=== PATIENT | female | born 1980 | race Caucasian/White ===

== ENCOUNTER 2016-06-16 06:09 | Emergency (ER) | payer BC ==
[2016-06-16] MEDS ORDERED: 0.9 % SODIUM CHLORIDE 1000ML 1,000 ML IV ONE (06:28)
[2016-06-16] MEDS ORDERED: ONDANSETRON HCL IV 4 MG/2 ML VIAL IVP ONE (06:28)
--- NOTE | 2016-06-16 06:45 | Emergency Department Record ---
History of Present Illness - General Source: Patient Mode of Arrival: Ambulatory Limitations: No limitations - History of Present Illness Initial comments: 36 yo female presents with nausea, vomiting and diarrhea that started around 9pm last night. The onset was initially with a bloated feeling quickly followed by nausea and vomiting and then diarrhea. No fevers. No blood in either vomiting or diarrhea. No recent travel or antibiotics. She has been healthy in her usual state of health. Her only abdominal surgery was a C section. MD complaint: Diarrhea, Nausea, Vomiting Onset/Timin -: Hour(s) Description of Vomiting: Food contents, Watery Description of Diarrhea: Water Associated Abdominal Pain: Yes Severity scale (1-10): 2 Quality: Aching, Cramping Consistency: Constant Improves with: None Worsens with: Eating <AAKASH VAZQUEZ - Last Filed: 06/16/16 06:36> <Luis Frias - Last Filed: 06/16/16 07:52> - General Chief complaint: Nausea, Vomiting, Diarrhea Stated complaint: VOMITING/DIARRHEA Time Seen by Provider: 06/16/16 06:33 - Related Data Home Medications Medication Instructions Recorded Confirmed Last Taken Fexofenadine HCl [Lilibeth Allergy] 180 mg PO DAILY 06/16/16 06/16/16 06/15/16 Norethindrone-E.estradiol-Iron 1 tab PO DAILY 06/16/16 06/16/16 06/15/16 [Junel Fe 1.5 mg-30 Mcg Tablet] Previous Rx's Medication Instructions Recorded Ondansetron [Zofran Odt] 4 mg SL .Q4-6H PRN #12 tab.rapdis 06/16/16 Allergies Allergy/AdvReac Type Severity Reaction Status Date / Time Sulfa (Sulfonamide Allergy ANAPHYLAXIS Verified 06/16/16 06:16 Antibiotics) Travel Screening - Travel/Exposure Within Last 30 Days Have you traveled within the last 30 days?: No - Travel Symptoms Symptom Screening: None <AAKASH VAZQUEZ - Last Filed: 06/16/16 06:36> Review of Systems Constitutional: Denies: Chills, Fever, Malaise, Weakness Eyes: Denies: Eye discharge ENT: Denies: Congestion, Throat pain Respiratory: Denies: Cough, Dyspnea, Hemoptysis, Stridor Cardiovascular: Denies: Chest pain, Palpitations, Syncope Endocrine: Denies: Fatigue Gastrointestinal: Reports: Abdominal pain (bloated), Diarrhea, Nausea, Vomiting. Denies: Hematemesis, Hematochezia Genitourinary: Denies: Dysuria, Urgency Musculoskeletal: Denies: Arthralgia, Back pain, Myalgia, Neck pain Skin: Denies: Bruising, Change in color Neurological: Denies: Confusion Psychiatric: Denies: Anxiety Hematological/Lymphatic: Denies: Blood Clots, Easy bleeding, Easy bruising, Swollen glands <AAKASH VAZQUEZ - Last Filed: 06/16/16 06:36> Past Medical History - SOCIAL HISTORY Smoking Status: Never smoker - RESPIRATORY Hx Respiratory Disorders: Yes Comment:: seasonal allergies - CARDIOVASCULAR Hx Cardio Disorders: No - NEURO Hx Neuro Disorders: No - GI Hx GI Disorders: No - Hx Genitourinary Disorders: No - ENDOCRINE Hx Endocrine Disorders: No - MUSCULOSKELETAL Hx Musculoskeletal Disorders: No - PSYCH Hx Psych Problems: No - HEMATOLOGY/ONCOLOGY Hx Hematology/Oncology Disorders: No <AAKASH VAZQUEZ - Last Filed: 06/16/16 06:36> Family Medical History Any Significant Family History?: Yes Family Hx Comment (NOT TO BE USED IN PLACE OF ITEMS BELOW): mom w/hyperthyroid Hx Cancer: Mother, Grandparents <AAKASH VAZQUEZ - Last Filed: 06/16/16 06:36> Physical Exam - General General Appearance: Alert, Oriented x3, Cooperative, No acute distress Limitations: No limitations - Head Head exam: Normal inspection - Eye Eye exam: Normal appearance, PERRL. negative: Conjunctival injection, Periorbital swelling - ENT ENT exam: Normal exam, Mucous membranes moist Ear exam: Normal external inspection Nasal Exam: Normal inspection Mouth exam: Normal external inspection Teeth exam: Normal inspection Throat exam: Normal inspection - Neck Neck exam: Normal inspection, Full ROM. negative: Tenderness - Respiratory Respiratory exam: Normal lung sounds bilaterally. negative: Respiratory distress - Cardiovascular Cardiovascular Exam: Regular rate, Normal rhythm, Normal heart sounds - GI/Abdominal GI/Abdominal exam: Soft, Normal bowel sounds. negative: Distended, Guarding, Rigid, Tenderness - Rectal Rectal exam: Deferred - exam: Deferred - Extremities Extremities exam: Normal inspection, Full ROM, Normal capillary refill. negative: Tenderness - Back Back exam: Reports: Normal inspection, Full ROM. Denies: Muscle spasm, Rash noted, Tenderness - Neurological Neurological exam: Alert, Normal gait, Oriented X3, Reflexes normal - Psychiatric Psychiatric exam: Normal affect, Normal mood. negative: Agitated, Anxious - Skin Skin exam: Dry, Intact, Normal color, Warm <AAKASH VAZQUEZ - Last Filed: 06/16/16 06:36> Course Vital Signs 06/16/16 06:13 Temperature 97.7 F Pulse Rate [ 120 H Pulse Ox Probe] Respiratory 20 Rate Blood Pressure 127/77 [Left Arm] Pulse Ox 95 <AAKASH VAZQUEZ - Last Filed: 06/16/16 06:36> Vital Signs 06/16/16 06:13 Temperature 97.7 F Pulse Rate [ 120 H Pulse Ox Probe] Respiratory 20 Rate Blood Pressure 127/77 [Left Arm] Pulse Ox 95 - Reevaluation(s) Reevaluation #1: The patient is doing much better at this time. She denies any nausea, vomiting, or diarrhea now and has no abdominal pain or cramping. I did discuss her lab results with her and the need for F/U. She denies any dysuria or back or flank pain and she states she is not on her menses presently so I am not sure how to explain the mild hematuria. Since there are no signs of infection I did explain to her that the prudent thing to do is have the urine rechecked later this week with her PCP and the patient does agree to that plan. 06/16/16 07:48 <Luis Frias - Last Filed: 06/16/16 07:52> Medical Decision Making - Lab Data Result diagrams: 06/16/16 06:40 06/16/16 06:40 Lab Results 06/16/16 06/16/16 06/16/16 Range/Units 06:40 06:40 07:30 WBC 13.4 H (4.2-12.2) K/uL RBC 4.76 (3.80-5.40) M/uL Hgb 14.1 (11.6-16.0) gm/dl Hct 43.4 (35.0-47.0) % MCV 91.2 (81-97) fl MCH 29.6 (27-33) pg MCHC 32.5 (32-36) g/dl RDW 14.5 (11.5-14.5) % Plt Count 414 H (130-400) K/uL MPV 9.8 (7.4-10.4) fl Neutrophils % 98.0 H (47-80) % Lymphocytes % 1.0 L (16-45) % Monocytes % 1.0 (0-9) % Eosinophils % Not Reportable Basophils % Not Reportable Platelet Estimate Normal (NORMAL) RBC Morphology Normal Sodium 141 (136-145) mmol/L Potassium 4.5 (3.5-5.1) mmol/L Chloride 106 (98-107) mmol/L Carbon Dioxide 21.9 L (22-30) mmol/L Anion Gap 13.1 (7-16) BUN 17 (7-17) mg/dL Creatinine 0.8 (0.52-1.04) mg/dL Estimated GFR > 60 ml/min Random Glucose 134 H (70-110) mg/dL Calcium 9.0 (8.5-10.1) mg/dL Total Bilirubin 0.60 (0.2-1.3) mg/dL AST 27 (14-36) U/L ALT 25 (9-52) U/L Alkaline Phosphatase 82 (38-126) U/L Total Protein 8.0 (6.3-8.2) gm/dL Albumin 4.5 (3.5-5.0) gm/dL Globulin 3.5 (1.4-4.8) gm/dL Albumin/Globulin Ratio 1.3 (1.1-1.8) Lipase 17 L (23-300) U/L Urine Color Yellow Urine Appearance Clear Urine pH 6.0 (5.0-8.0) Ur Specific [place] >= 1.030 (1.002-1.030) Urine Protein Negative (NEGATIVE) Urine Glucose (UA) Negative (NEGATIVE) Urine Ketones 15 mg/dl H (NEGATIVE) Urine Blood Moderate (NEGATIVE) Urine Nitrite Negative (NEGATIVE) Urine Bilirubin Negative (NEGATIVE) Urine Urobilinogen 0.2 (0.20 - 1.00) E.U./dL Ur Leukocyte Esterase Negative (NEGATIVE) Urine RBC 36 - 50 (NONE SEEN) Urine WBC 0 - 2 (0-2/hpf) Ur Epithelial Cells 3 - 6 (FEW) Urine Bacteria None seen Urine HCG, Qual Negative (NEGATIVE) <Luis Frias - Last Filed: 06/16/16 07:52> Disposition <AAKASH VAZQUEZ - Last Filed: 06/16/16 06:36> Disposition: Discharge Time of Disposition: 07:52 <Luis Frias - Last Filed: 06/16/16 07:52> Clinical Impression: Vomiting and diarrhea, Gastroenteritis Disposition: Home, Self-Care Condition: (1) Good Instructions: Acute Nausea and Vomiting (ED) Additional Instructions: Please drink plenty of fluids and use the Zofran for nausea. Please eat a very bland diet and see your PCP later this week for recheck and to have your urine rechecked due to the mild hematuria. Return to the ER for any increased nausea, vomiting, or diarrhea or for any fever or bleeding. Prescriptions: Ondansetron [Zofran Odt] 4 mg SL .Q4-6H PRN #12 tab.rapdis PRN Reason: Nausea Forms: Patient Portal Access
[2016-06-16 06:49] LABS: HEMATOCRIT 43.4 % (35.0-47.0); HEMOGLOBIN 14.1 gm/dl (11.6-16.0); MEAN CELL VOLUME 91.2 fl (81-97); MEAN CORPUSCULAR HEMOGLOBIN 29.6 pg (27-33); MEAN CORPUSCULAR HGB CONC 32.5 g/dl (32-36); MEAN PLATELET VOLUME 9.8 fl (7.4-10.4); PLATELET COUNT 414 K/uL (130-400); RED BLOOD COUNT 4.76 M/uL (3.80-5.40); RED CELL DISTRIBUTION WIDTH 14.5 % (11.5-14.5); WHITE BLOOD COUNT W/O DIFF 13.4 K/uL (4.2-12.2)
[2016-06-16 07:03] LABS: PLATELET ESTIMATE NORMAL (NORMAL)
[2016-06-16 07:06] LABS: ALB/GLOB RATIO 1.3 (1.1-1.8); ALBUMIN 4.5 gm/dL (3.5-5.0); ALKALINE PHOSPHATASE 82 U/L (38-126); ALT/SGPT 25 U/L (9-52); ANION GAP 13.1 (7-16); AST/SGOT 27 U/L (14-36); BLOOD UREA NITROGEN 17 mg/dL (7-17); CARBON DIOXIDE 21.9 mmol/L (22-30); CREATININE 0.8 mg/dL (0.52-1.04); EST GLOMERULAR FILTRATION RATE > 60 ml/min; GLUCOSE,RANDOM 134 mg/dL (70-110); LIPASE 17 U/L (23-300)
[2016-06-16 07:35] LABS: URINE APPEARANCE CLEAR; URINE BILIRUBIN NEGATIVE (NEGATIVE); URINE BLOOD MODERATE (NEGATIVE); URINE COLOR YELLOW; URINE GLUCOSE (UA) NEGATIVE (NEGATIVE); URINE KETONE 15 mg/dL (NEGATIVE); URINE LEUKOCYTE ESTERASE NEGATIVE (NEGATIVE); URINE NITRITE NEGATIVE (NEGATIVE); URINE PROTEIN NEGATIVE (NEGATIVE); URINE UROBILINOGEN 0.2 E.U./dL (0.20 - 1.00)
[2016-06-16 07:41] LABS: HCG,QUALITATIVE URINE NEGATIVE (NEGATIVE); URINE BACTERIA NONE SEEN; URINE RBC 36 - 50 (NONE SEEN); URINE WBC 0 - 2 (0-2/hpf)
== END 2016-06-16 08:02 | disposition home or self-care (01) ==
LOC: ER 06:09
DX: K52.9 Noninfective gastroenteritis and colitis, unspecified (principal); R11.2 Nausea with vomiting, unspecified; R31.21 Asymptomatic microscopic hematuria; R14.0 Abdominal distension (gaseous)
CPT/HCPCS: 99284 ×2; 96374; 83690; 80053; 81001; 81025; 85027; J2405; J7030